=== PATIENT | female | born 1980 | race Caucasian/White ===

== ENCOUNTER → 2017-07-22 | Outpatient (CLI) | payer OTHER | END | disposition home or self-care (01) | LOC: C.PAPS 10:53 | PROVIDERS: ATTEND Family Medicine | DX: Z12.4 Encounter for screening for malignant neoplasm of cervix (principal) ==

== ENCOUNTER → 2017-07-22 | Outpatient (CLI) | payer OTHER ==
[2017-07-22 13:55] LABS: HEMATOCRIT 29.5 % (37-47); MEAN CELL VOLUME 63.3 fL (80-100); MEAN CORPUSCULAR HEMOGLOBIN 18.7 pg (25-34); MEAN CORPUSCULAR HGB CONC 29.5 g/dl (32-36); MEAN PLATELET VOLUME 9.7 fL (7.4-10.4); PLATELET COUNT 250 K/uL (130-400); RED BLOOD COUNT 4.66 M/uL (4.2-5.4); WHITE BLOOD COUNT 4.66 K/uL (4.8-10.8)
== END | disposition home or self-care (01) ==
LOC: C.LAB 12:23
PROVIDERS: ATTEND Family Medicine
DX: R53.83 Other fatigue (principal); N92.5 Other specified irregular menstruation; E03.9 Hypothyroidism, unspecified; Z12.4 Encounter for screening for malignant neoplasm of cervix

== ENCOUNTER → 2017-08-06 | Outpatient (CLI) | payer OTHER ==
--- NOTE | 2017-08-06 13:08 | DIAGNOSTIC IMAGING REPORT ---
PELVIC ULTRASOUND, TRANSABDOMINAL AND TRANSVAGINAL HISTORY: Excessive menstruation. Abnormal uterine bleeding. COMPARISON: None. FINDINGS: Uterus: 9.9 x 5.7 x 4.9 cm. No uterine masses. Multiple cystic lesions seen within the lower uterine segment which favor nabothian cysts measuring up to 1.2 cm . Endometrial stripe: 5 mm in thickness. Right ovary: Normal in size and demonstrates normal color flow. Left ovary: Normal in size and demonstrates normal color flow. Miscellaneous:No pelvic free fluid. IMPRESSION: Multiple cystic lesions within the lower uterine segment which likely represent nabothian cysts . Otherwise, the uterus and ovaries are unremarkable. Electronically signed by: Mayco Joya M.D. 08/06/2017 1:06 PM Dictated Date/Time: 08/06/2017 1:03 PM
== END | disposition home or self-care (01) ==
LOC: C.ULTR 12:15
PROVIDERS: ATTEND Family Medicine
DX: N92.0 Excessive and frequent menstruation with regular cycle (principal); N85.8 Other specified noninflammatory disorders of uterus

== ENCOUNTER → 2017-11-02 | Outpatient (CLI) | payer OTHER ==
[2017-11-02 12:16] LABS: HEMOGLOBIN 11.5 g/dL (12.0-16.0); MEAN CELL VOLUME 80.4 fL (80-100); MEAN CORPUSCULAR HEMOGLOBIN 25.7 pg (25-34); MEAN CORPUSCULAR HGB CONC 31.9 g/dl (32-36); MEAN PLATELET VOLUME 10.1 fL (7.4-10.4); PLATELET COUNT 220 K/uL (130-400); RED CELL DISTRIBUTION WIDTH CV 20.2 % (11.5-14.5); RED CELL DISTRIBUTION WIDTH SD 59.5 fL (36.4-46.3); WHITE BLOOD COUNT 3.69 K/uL (4.8-10.8)
[2017-11-02 12:42] LABS: ALBUMIN 4.1 gm/dl (3.4-5.0); ALT/SGPT 19 U/L (12-78); BLOOD UREA NITROGEN 16 mg/dl (7-18); CARBON DIOXIDE 26 mmol/L (21-32); GLUCOSE 79 mg/dl (70-99); POTASSIUM 3.9 mmol/L (3.5-5.1); SODIUM 140 mmol/L (136-145)
[2017-11-02 12:47] LABS: ALKALINE PHOSPHATASE 45 U/L (45-117); AST/SGOT 19 U/L (15-37); TOTAL PROTEIN 7.5 gm/dl (6.4-8.2)
[2017-11-02 13:08] LABS: RETIC COUNT % < 0.5 % (0.5-2.0)
== END | disposition home or self-care (01) ==
LOC: C.LAB 11:06
PROVIDERS: ATTEND Family Medicine
DX: D64.9 Anemia, unspecified (principal); N92.0 Excessive and frequent menstruation with regular cycle